=== PATIENT | male | born 1975 | race Caucasian/White ===

== ENCOUNTER 2018-10-21 11:47 | Day surgery (SDC) | payer OTHER ==
[2018-10-21] MEDS ORDERED: NALOXONE HCL 0.4 MG/ML INJ IVP PRN (12:02)
[2018-10-21] MEDS ORDERED: fentaNYL 100 MCG/2 ML INJ IVP PRN (12:02)
[2018-10-21] MEDS ORDERED: FLUMAZENIL 0.5 MG/5 ML MDV IVP PRN (12:02)
[2018-10-21] MEDS ORDERED: MIDAZOLAM 2 MG/2 ML VIAL IVP PRN (12:02)
[2018-10-21] MEDS ORDERED: FLUMAZENIL 0.5 MG/5 ML MDV IVP ONE (12:09)
[2018-10-21] MEDS ORDERED: MIDAZOLAM 2 MG/2 ML VIAL ONE (12:09)
[2018-10-21] MEDS ORDERED: NALOXONE HCL 0.4 MG/ML INJ ONE (12:09)
[2018-10-21] MEDS ORDERED: fentaNYL 100 MCG/2 ML INJ ONE (12:09)
[2018-10-21] MEDS ORDERED: NS 1,000 ML IV SCH (12:15)
[2018-10-21 12:25] VITALS: BP 114/80
--- NOTE | 2018-10-21 14:42 | PDHPUP ---
History & Physical Update H&P update statement: This history and physical update is based on an assessment of the patient which was completed after admission or registration (within 24 hours), but prior to the surgery/procedure. H&P update: H&P reviewed & patient examined
--- NOTE | 2018-10-21 14:43 | PDPROPOC ---
Sedation Plan of Care Sedation Plan of Care: vital signs stable, mental status noted, patient educated of risks, benefits, alternatives ASA Classification: ASA 2 Planned drugs: fentanyl, midazolam Mallampati Score: Class 1 Mallampati Reference Image: Patient passed 3-3-2 rule?: Yes
[2018-10-21] MEDS ORDERED: ONDANSETRON 4 MG/2 ML VIAL IVP PRN (15:25)
[2018-10-21] MEDS ORDERED: OXYCODONE/APAP 5/325 TAB PO PRN (15:25)
--- NOTE | 2018-10-21 15:25 | POSTOPPROG ---
Post Op Note Date of Operation: 10/21/18 Surgeon: Mauri Bryant [employer] Scout: none Anesthesiologist: none Anesthesia: IV Sedation Pre-op Diagnosis: AVM Post-op Diagnosis: same Indication: AVM Procedure: diagnostic angiogram Findings: right temporal AVM Inf/Abcess present in the surg proc area at time of surgery?: No EBL: Minimal Complications: none
[2018-10-21] MEDS ORDERED: IOPAMIDOL (ISOVUE-300) 100 ML BTL ONE (15:33)
--- NOTE | 2018-10-21 15:37 | PDCONSULT ---
Junior Data Analyst Note: NEUROSURGERY (ENDOVASCULAR) s/p angiogram, resting well AAOx3 strength full, sensation normal groin c/d/i, distal pulses palpable s/p diagnostic cerebral angiogram, right temporal AVM (see dictation) - flat x 3 hours, then d/c home - clinic will call for followup appt. Manny
== END 2018-10-21 18:52 | disposition home or self-care (01) ==
LOC: FIMAGING 11:47 → FCATH 18:52
PROVIDERS: ATTEND Neurological Surgery
PROC: B3151ZZ Fluoroscopy of Bilateral Common Carotid Arteries using Low Osmolar Contrast (ICD-10-PCS; principal; 2018-10-21)
PROC: B31G1ZZ Fluoroscopy of Bilateral Vertebral Arteries using Low Osmolar Contrast (ICD-10-PCS; principal; 2018-10-21)
PROC: B3181ZZ Fluoroscopy of Bilateral Internal Carotid Arteries using Low Osmolar Contrast (ICD-10-PCS; principal; 2018-10-21)
DX: Q28.2 Arteriovenous malformation of cerebral vessels (principal); F17.210 Nicotine dependence, cigarettes, uncomplicated
CPT/HCPCS: 36224; 36226; 99152; 99153; C1769; C1760; J1644; J2250; J2310; J3010; Q9967